=== PATIENT | male | born 1970 | race Caucasian/White ===

== ENCOUNTER 2016-10-28 08:40 | Emergency (ER) | payer OTHER ==
[2016-10-28 08:49] VITALS: BP 164/107; PULSE 107; TEMP 98.5; BMI 60.3
--- NOTE | 2016-10-28 09:51 | PDOC ---
History of Present Illness - General Chief Complaint: Edema Stated Complaint: SWOLLEN RT TOE Time Seen by Provider: 10/28/16 08:58 History Source: Patient Exam Limitations: No Limitations - History of Present Illness Initial Comments: 10/28/16 11:26 MY Chief Complaint: rt. large toe pain/redness, left lateral ankle swelling History of Present Illness: Patient is a 46-year-old male with a history of hypertension and [id number] diabetic that is currently not being treated here today complaining of right large toe pain times one week with redness of a 3 days. Patient also complaining of having swelling of his left lateral ankle however he denies any pain presently. Patient denies any history of gout or any injury to his right foot or left ankle. Denies any drinking patient does report eating meat and seafood. 10/28/16 13:25 Timing/Duration: getting worse (rt. large toe pain X 1 wk and redness for 3 days , left lateral ankle swelling X 1 wk ) Severity: moderate Associated Symptoms: reports: other (rt. large toe pain X 1 wk and redness for 3 days, left lateral ankle swelling X 1 wk ) Past History - Past Medical History Allergies/Adverse Reactions: Allergies Allergy/AdvReac Type Severity Reaction Status Date / Time Penicillins Allergy Verified 10/28/16 08:44 Home Medications: Ambulatory Orders Indomethacin [Indocin -] 25 mg PO TID #19 capsule 10/28/16 Diabetes: Yes (NON COMPLIANT WITH MEDS.) HTN: Yes (NON COMPLIANT WITH MEDS) - Family Disease History Family Disease History: Diabetes: Father - Immunization History Td Vaccination: No TDAP Vaccination: No Immunization Up to Date: Yes - Psycho/Social/Smoking Cessation Hx Anxiety: No Suicidal Ideation: No Smoking History: Never smoked Have you smoked in the past 12 months: No Hx Alcohol Use: No Drug/Substance Use Hx: No Substance Use Type: None Review of Systems - Review of Systems Able to Perform ROS?: Yes Constitutional: No: Symptoms Reported HEENTM: No: Symptoms Reported Respiratory: No: Symptoms reported Cardiac (ROS): No: Symptoms Reported ABD/GI: No: Symptoms Reported : No: Symptoms Reported Musculoskeletal: Yes: Joint Pain (right large toe X 1 wk ), Joint Swelling ( left lateral ankle X 1 wk ) Integumentary: Yes: Erythema (right large toe X 3 days) Neurological: No: Symptoms reported *Physical Exam - Vital Signs Last Vital Signs Temp Pulse Resp BP Pulse Ox 98.5 F 107 H 20 164/107 96 10/28/16 08:45 10/28/16 08:45 10/28/16 08:45 10/28/16 08:45 10/28/16 08:45 - Physical Exam General Appearance: Yes: Appropriately Dressed Respiratory/Chest: positive: Lungs Clear, Normal Breath Sounds. negative: Chest Tender, Respiratory Distress Cardiovascular: positive: Regular Rhythm, Regular Rate, S1, S2 Vascular Pulses: Dorsalis-Pedis (R): 4+ Extremity: positive: Normal Capillary Refill, Tender (right large toe ), Swelling (left lateral ankle). negative: Normal Inspection (rt. large toe edematous, erythematous ) Integumentary: positive: Erythema (right large toe) Neurologic: positive: Alert, Normal Response, Responsive. negative: Respond to painful stimul, Numbness, Sensory Deficit (right large toe) Procedures - Consent Consent obtained: From Patient - Splinting Splint Location: Left: Ankle Pre-Proc Neuro Vasc Exam: normal Post-Proc Neuro Vasc Exam: normal Jimy Bandage: 3" Complications: No ED Treatment Course - LABORATORY CBC & Chemistry Diagram: 10/28/16 09:52 10/28/16 09:52 - RADIOLOGY Radiology Studies Ordered: Category Date Time Status ANKLE & FOOT-LEFT* [RAD] Stat Radiology 10/28/16 09:49 Ordered FOOT-RIGHT [RAD] Stat Radiology 10/28/16 09:49 Ordered Medical Decision Making - Medical Decision Making Patient is a 46-year-old male with a history of hypertension and non-insulin- dependent diabetic pedis that is currently not being treated here today complaining of right large toe pain times one week with redness of a 3 days. Patient also complaining of having swelling of his left lateral ankle however he denies any pain presently. Patient denies any history of gout or any injury to his right foot or left ankle. Denies any drinking patient does report eating meat and seafood. R/O gout rt large toe R/O rafat injury rt large toe and left ankle GOUT ankle left sprain PLAN: cbc with diff ESR uric acid xray left ankle there is suggestion of old trauma with degenerative changes at the base of the first metatarsal. Most of the study is unremarkable. If symptoms persist further imaging may be of help per Dr. Kelly X-ray foot no acute pathology noted per Dr. Kelly 10/28/16 11:11 Laboratory Tests 10/28/16 09:52 WBC 9.7 RBC 5.22 Hgb 14.6 Hct 45.9 MCV 88.0 MCH 27.9 MCHC 31.7 L RDW 16.0 H Plt Count 217 MPV 8.8 Neutrophils % 63.3 Lymphocytes % 27.5 Monocytes % 6.3 Eosinophils % 2.3 Basophils % 0.6 10/28/16 11:37 Laboratory Tests 10/28/16 10/28/16 09:52 09:52 Sodium 138 Potassium 5.0 Chloride 103 Carbon Dioxide 31 Anion Gap 4 L BUN 21 H Creatinine 1.6 H Random Glucose 90 Uric Acid 9.2 H Calcium 9.3 10/28/16 11:42 10/28/16 11:50 10/28/16 11:56 jimy wrap left ankle 10/28/16 11:57 *DC/Admit/Observation/Transfer Diagnosis at time of Disposition: Sprain Gout Qualifiers: Gout site: toe Gout etiology: unspecified cause Chronicity: acute Laterality: right Qualified Code(s): M10.9 - Gout, unspecified - Discharge Dispostion Disposition: HOME Condition at time of disposition: Stable - Prescriptions Prescriptions: Indomethacin [Indocin -] 25 mg PO TID #19 capsule - Referrals Referrals: bAdias Gonzalez MD [Staff Physician] - - Patient Instructions Printed Discharge Instructions: DI for Gout Additional Instructions: You may obtain a primary care provider at [facility] at [phone] follow-up with within the next few days Follow-up with orthopedist if ankle swelling persist Elevate your left leg as much as possible and apply Jimy wrap to left ankle during the day take off at night Avoiding eating a lot of organ meat or seafood drink a lot of water Patient voiced understanding of discharge instructions and all questions were answered Print Language: PALAUAN
[2016-10-28 10:51] LABS: BASOPHIL 0.6 % (0-2.0); EOSINOPHIL 2.3 % (0-4.5); MCH 27.9 pg (25.7-33.7); MCHC 31.7 g/dl (32.0-35.9); MEAN PLT VOLUME 8.8 fl (7.5-11.1); NEUTROPHILS 63.3 % (42.8-82.8); PLATELET COUNT 217 K/MM3 (134-434); WHITE BLOOD COUNT 9.7 K/mm3 (4.0-10.0)
[2016-10-28 11:22] LABS: ANION GAP 4 (8-16); CALCIUM 9.3 mg/dL (8.5-10.1); CO2 31 mmol/L (21-32); CREATININE 1.6 mg/dL (0.7-1.3); GLUCOSE,RANDOM 90 mg/dL (74-106)
[2016-10-28] MEDS ORDERED: INDOMETHACIN 50 MG CAPSULE PO ONE (11:51)
== END 2016-10-28 12:11 | disposition home or self-care (01) ==
LOC: JERFT 08:40
DX: M10.9 Gout, unspecified (principal); S93.402A Sprain of unspecified ligament of left ankle, initial encounter; X58.XXXA Exposure to other specified factors, initial encounter; Y93.9 Activity, unspecified; Y92.9 Unspecified place or not applicable; I10 Essential (primary) hypertension; E11.9 Type 2 diabetes mellitus without complications
CPT/HCPCS: 36415; 73610-TC-LT; 73630-TC-LT; 73630-TC-RT; 80048; 84550; 85025; 85651; 99282-25

== ENCOUNTER 2017-01-05 11:50 | Emergency (ER) | payer OTHER ==
[2017-01-05 12:01] VITALS: BP 124/96; PULSE 95; TEMP 98.4; BMI 68.5
[2017-01-05] MEDS ORDERED: IBUPROFEN 600 MG TABLET (FP) PO ONE ×2 (13:05→13:09)
--- NOTE | 2017-01-05 13:09 | PDOC ---
History of Present Illness - General Chief Complaint: Pain, Acute Stated Complaint: LT LEG PAIN Time Seen by Provider: 01/05/17 12:08 History Source: Patient Exam Limitations: No Limitations - History of Present Illness Initial Comments: This is a 46-year-old male with past history of hypertension, hypercholesterolemia, diabetes, gout presents today with atraumatic left foot pain since awaking this morning. Patient denies any recent trauma. Patient seeks care today due to inability to bear weight on left foot. Patient states she was diagnosed with gout but his primary doctor took him off his indomethacin. She denies any fevers, chest pain, shortness of breath, pain to the left knee, left ankle. 01/05/17 13:11 Occurred: reports: this morning Severity: Yes: mild Lower Extremity Pain Location: left: foot (dorsum) Method of Injury: Yes: unknown Modifying Factors: improves with: None Lower Ext. Injury Location - Specific Injury Location Foot: left foot soft tissue tenderness, left foot limited range of motion, left foot swelling Past History - Travel Traveled outside of the country in the last 30 days: No Close contact w/someone who was outside of country & ill: No - Past Medical History Allergies/Adverse Reactions: Allergies Allergy/AdvReac Type Severity Reaction Status Date / Time Penicillins Allergy Verified 01/05/17 11:55 Home Medications: Ambulatory Orders Aspirin [ASA -] 81 mg PO DAILY 01/05/17 Cholecalciferol (Vitamin D3) [Vitamin D -] 400 unit PO ASDIR 01/05/17 Ezetimibe 10 mg PO ASDIR 01/05/17 Indomethacin [Indocin -] 50 mg PO TID #21 capsule 01/05/17 Metoprolol Succinate [Toprol Xl] 50 mg PO ASDIR 01/05/17 Anemia: Yes Diabetes: Yes (NON COMPLIANT WITH MEDS.) HTN: Yes (NON COMPLIANT WITH MEDS) Hypercholesterolemia: Yes - Family Disease History Family Disease History: Diabetes: Father - Immunization History Td Vaccination: No TDAP Vaccination: No Immunization Up to Date: Yes - Suicide/Smoking/Psychosocial Hx Smoking History: Never smoked Have you smoked in the past 12 months: No Information on smoking cessation initiated: No Hx Alcohol Use: No Drug/Substance Use Hx: No Substance Use Type: None Review of Systems - Review of Systems Able to Perform ROS?: Yes Is the patient limited Romanian proficient: No Constitutional: No: Symptoms Reported HEENTM: No: Symptoms Reported Respiratory: No: Symptoms reported Cardiac (ROS): No: Symptoms Reported ABD/GI: No: Symptoms Reported : No: Symptoms Reported Musculoskeletal: Yes: See HPI Integumentary: No: Symptoms Reported Neurological: No: Symptoms reported Endocrine: No: Symptoms Reported Hematologic/Lymphatic: No: Symptoms Reported *Physical Exam - Vital Signs Last Vital Signs Temp Pulse Resp BP Pulse Ox 98.4 F 95 H 16 124/96 100 01/05/17 11:57 01/05/17 11:57 01/05/17 11:57 01/05/17 11:57 01/05/17 11:57 - Physical Exam General Appearance: Yes: Appropriately Dressed. No: Apparent Distress HEENT: positive: EOMI, CASEY, Normal ENT Inspection Neck: positive: Trachea midline, Supple Respiratory/Chest: positive: Lungs Clear, Normal Breath Sounds. negative: Chest Tender, Respiratory Distress, Accessory Muscle Use Cardiovascular: positive: Regular Rhythm, Regular Rate, S1, S2. negative: Edema , Murmur Gastrointestinal/Abdominal: positive: Normal Bowel Sounds, Soft, Other (obese abdomen). negative: Tender Musculoskeletal: positive: Normal Inspection. negative: CVA Tenderness Extremity: positive: Tender (over left great toe MTP), Swelling (dorsum of left foot) Integumentary: positive: Normal Color, Dry, Warm Neurologic: positive: gm mobile II-XII NML intact, Fully Oriented, Alert, Motor Strength 5/5 Medical Decision Making - Medical Decision Making 01/05/17 13:14 A: This is a 46-year-old male with past history of hypertension, hypercholesterolemia, diabetes, gout presents today with atraumatic left foot pain since awaking this morning. Patient denies any recent trauma. Patient seeks care today due to inability to bear weight on left foot. Patient states she was diagnosed with gout but his primary doctor took him off his indomethacin. She denies any fevers, chest pain, shortness of breath, pain to the left knee, left ankle. Patient has point tenderness over left great toe MTP. Patient also with soft tissue tenderness over dorsum of left foot starting at the ankle and extending to the MTP. Patient able to range against resistance briefly. Patient reports decreased range of motion secondary to pain. Able to fully range of motion passively. No deformity or crepitus palpated. DDx: stress fracture vs gout vs tendonitis P: Given the nature of an atraumatic injury and patient's BMI, I will do an x-ray to rule out stress fracture. Also with history of gout and elevated uric acid levels on last visit, I will redraw uric acid levels and restart on indomethacin if it remains elevated. 01/05/17 14:24 Wet read of xrays by me: No acute fracture noted. Bony structures intact. Given elevated uric acid levels, mostly acute gouty arthritis. I will prescribe Indocin, provide low purine diet recommendations and podiatry consult as patient is a diabetic. I discussed the physical exam findings, ancillary test results and final diagnoses with the patient. I answered all of the patient's questions. The patient was satisfied with the care received and felt comfortable with the discharge plan and treatment plan. The patient will call his pmd within 96 hours to arrange follow-up and will return to the Emergency Department with any new, persistent or worsening symptoms. *DC/Admit/Observation/Transfer Diagnosis at time of Disposition: Acute gout due to renal impairment involving left foot - Discharge Dispostion Disposition: HOME Condition at time of disposition: Stable Admit: No - Prescriptions Prescriptions: Indomethacin [Indocin -] 50 mg PO TID #21 capsule - Referrals Referrals: Ben Mena [Primary Care Provider] - Steffen Canchola MD [Staff Physician] - - Patient Instructions Printed Discharge Instructions: DI for Gout, Low-Purine Diet Additional Instructions: Your uric acid level is 9.6 Follow the low purine diet instructions I have provided. Take indomethacin 50mg 3 times every day until pain is tolerable. See Dr. Mena to follow up on your gout. Call Dr. Canchola (podiatry) for an appointment to have foot care done. Rest foot as much as possible. Return to ER for increased pain, fevers, inability to walk or any other concerns. Thank you for choosing us to provide your acute healthcare needs.
== END 2017-01-05 14:40 | disposition home or self-care (01) ==
LOC: JERFT 11:50
DX: N28.9 Disorder of kidney and ureter, unspecified (principal); M10.30 Gout due to renal impairment, unspecified site; I10 Essential (primary) hypertension; E78.00 Pure hypercholesterolemia, unspecified; E11.9 Type 2 diabetes mellitus without complications; D64.9 Anemia, unspecified; Z88.0 Allergy status to penicillin; Z79.82 Long term (current) use of aspirin; Z91.14 Patient's other noncompliance with medication regimen
CPT/HCPCS: 36415; 73630-TC-LT; 84550; 99281-25

== ENCOUNTER 2017-11-01 09:15 | Emergency (ER) | payer SELFPAY ==
[2017-11-01 09:30] VITALS: BP 160/100; PULSE 98; TEMP 98.4; BMI 51.6
--- NOTE | 2017-11-01 09:44 | PDOC ---
History of Present Illness - General Chief Complaint: Injury Stated Complaint: LEG PAIN Time Seen by Provider: 11/01/17 09:34 History Source: Patient Exam Limitations: No Limitations - History of Present Illness Initial Comments: 11/01/17 19:08 Patient sustained an inversion injury yesterday his left ankle. States used Ice And Tylenol with some minimal results Occurred: reports: yesterday Severity: reports: moderate Pain Location: reports: lower extremity (left swelling and pain to lateral ) Modifying Factors: improves with: cold therapy Loss of Consciousness: no loss of consciousness Associated Symptoms (Fall): denies symptoms Past History - Travel Traveled outside of the country in the last 30 days: No Close contact w/someone who was outside of country & ill: No - Past Medical History Allergies/Adverse Reactions: Allergies Allergy/AdvReac Type Severity Reaction Status Date / Time ramipril Allergy Severe Difficulty Verified 11/01/17 09:18 Breathing Penicillins Allergy Verified 11/01/17 09:16 Home Medications: Ambulatory Orders Metoprolol Succinate [Toprol Xl] 50 mg PO ASDIR 01/05/17 Acetaminophen 650 mg PO Q4H #60 tablet 11/01/17 Anemia: Yes COPD: No Diabetes: Yes (NON COMPLIANT WITH MEDS.) HTN: Yes (NON COMPLIANT WITH MEDS) Hypercholesterolemia: Yes - Family Disease History Family Disease History: Diabetes: Father - Immunization History Td Vaccination: No TDAP Vaccination: No Immunization Up to Date: Yes - Suicide/Smoking/Psychosocial Hx Smoking History: Never smoked Have you smoked in the past 12 months: No Hx Alcohol Use: No Drug/Substance Use Hx: No Substance Use Type: None Review of Systems - Review of Systems Able to Perform ROS?: Yes Is the patient limited Ukrainian proficient: Yes Constitutional: Yes: Symptoms Reported, See HPI HEENTM: No: Symptoms Reported Respiratory: No: Symptoms reported Musculoskeletal: Yes: Symptoms Reported, See HPI, Joint Pain, Joint Swelling, Muscle Pain Integumentary: Yes: Symptoms Reported, Bruising All Other Systems: Reviewed and Negative *Physical Exam - Vital Signs Last Vital Signs Temp Pulse Resp BP Pulse Ox 98.4 F 98 H 18 160/100 100 11/01/17 09:16 11/01/17 09:16 11/01/17 09:16 11/01/17 09:16 11/01/17 09:16 - Physical Exam General Appearance: Yes: Nourished, Appropriately Dressed, Apparent Distress, Mild Distress HEENT: positive: TMs Normal, Pharynx Normal Neck: positive: Supple. negative: Tender Respiratory/Chest: positive: Lungs Clear, Normal Breath Sounds Gastrointestinal/Abdominal: positive: Soft Extremity: positive: Normal Capillary Refill, Tender (point tenderness to lateral malleolus and fifth metatarsal. No crepitus or step-offs, ambulatory but walks with a limp.), Swelling. negative: Normal Range of Motion Integumentary: positive: Pale, Swelling, Ecchymosis Neurologic: positive: storage battery inspector and tester II-XII NML intact, Fully Oriented, Alert, Normal Mood/ Affect, Normal Response, Motor Strength 07/29 ED Treatment Course - RADIOLOGY Radiology Studies Ordered: Category Date Time Status ANKLE-LEFT [RAD] Stat Radiology 11/01/17 09:35 Ordered Progress Note - Progress Note Progress Note: X-ray negative for fractures or dislocations, Jimy and Aircast provided with crutches. Will follow-up with Froylan Castaneda *DC/Admit/Observation/Transfer Diagnosis at time of Disposition: Left ankle sprain Qualifiers: Encounter type: initial encounter Involved ligament of ankle: unspecified ligament Qualified Code(s): S93.402A - Sprain of unspecified ligament of left ankle, initial encounter - Discharge Dispostion Disposition: HOME Condition at time of disposition: Stable Decision to Admit order: No - Prescriptions Prescriptions: Acetaminophen 650 mg PO Q4H #60 tablet - Referrals Referrals: Ben Mena [Primary Care Provider] - Reuben Starr MD [Staff Physician] - - Patient Instructions Printed Discharge Instructions: DI for Ankle Sprain Additional Instructions: Rest, ice to area on and off for 15 minutes 4-6 times a day Avoid heavy lifting or exercise until pain and swelling is resolved or until further directed Keep area highly elevated to reduce swelling Use splints/Jimy wrap as directed Followup with orthopedist in one to 2 days if not improving, if significantly improved may wait one week for followup with orthopedist May use in all 23 25 mg tablets every 6 hours as needed for pain - Post Discharge Activity Forms/Work/School Notes: Back to Work
== END 2017-11-01 10:20 | disposition home or self-care (01) ==
LOC: JERFT 09:15
PROC: 2W3RX1Z Immobilization of Left Lower Leg using Splint (ICD-10-PCS; principal; 2017-11-01)
DX: S93.402A Sprain of unspecified ligament of left ankle, initial encounter (principal); D64.9 Anemia, unspecified; I10 Essential (primary) hypertension; E11.9 Type 2 diabetes mellitus without complications; E78.00 Pure hypercholesterolemia, unspecified; Z88.0 Allergy status to penicillin; Z91.14 Patient's other noncompliance with medication regimen; X58.XXXA Exposure to other specified factors, initial encounter; Y93.9 Activity, unspecified; Y92.9 Unspecified place or not applicable
CPT/HCPCS: 73610-TC-LT-FY; 99282-25

== ENCOUNTER 2024-02-10 19:34 | Observation (INO) | payer OTHER ==
[2024-02-10] MEDS ORDERED: ACETAMINOPHEN 325 MG TABLET (FP) ONE (20:45)
[2024-02-10] MEDS: ACETAMINOPHEN 500 MG TABLET (FP) PO ONE (20:49)
[2024-02-10 23:47] LABS: BASO % 0.8 % (0-2.0); HEMOGLOBIN 14.8 GM/dL (11.7-16.9); LYMPH % 31.2 % (8-40); MCH 30.5 pg (25.7-33.7); MCHC 33.6 g/dl (32.0-35.9); MEAN CELL VOLUME 90.8 fl (80-96); MEAN PLT VOLUME 8.1 fl (7.5-11.1); MONO % 6.1 % (3.8-10.2); NEUT % 58.9 % (42.8-82.8); PLATELET COUNT 177 10^3/uL (134-434); RBC 4.85 M/mm3 (4.00-5.60); RDW 14.7 % (11.9-15.9); WHITE BLOOD COUNT 7.1 K/mm3 (4.0-10.0)
[2024-02-10 23:59] LABS: ALBUMIN 3.3 g/dl (3.4-5.0); BLOOD UREA NITROGEN 15.6 mg/dL (7-18); CALCIUM 8.8 mg/dL (8.5-10.1)
[2024-02-11 00:03] LABS: CREATININE 1.5 mg/dL (0.55-1.3)
[2024-02-11 00:04] LABS: BILIRUBIN,TOTAL 0.3 mg/dL (0.2-1); TOT PROT 6.4 g/dl (6.4-8.2)
[2024-02-11] MEDS: ACETAMINOPHEN 500 MG TABLET (FP) PO ONE (04:41)
[2024-02-11] MEDS: ONDANSETRON 4 MG/2 ML VIAL IVPUSH ONE (04:41)
[2024-02-11 08:47] VITALS: BMI 47.6
[2024-02-11] MEDS: INSULIN ASPART SLIDING SCALE (NOVOLOG) 1 VIAL SQ SCH (09:02)
[2024-02-11 09:21] LABS: BASO % 0.6 % (0-2.0); EOS % 2.8 % (0-4.5); HEMATOCRIT 44.8 % (35.4-49); HEMOGLOBIN 14.8 GM/dL (11.7-16.9); LYMPH % 32.2 % (8-40); MCH 30.5 pg (25.7-33.7); MEAN CELL VOLUME 92.3 fl (80-96); MEAN PLT VOLUME 8.5 fl (7.5-11.1); MONO % 6.1 % (3.8-10.2); NEUT % 58.3 % (42.8-82.8); PLATELET COUNT 184 10^3/uL (134-434); RBC 4.85 M/mm3 (4.00-5.60); RDW 15.1 % (11.9-15.9); WHITE BLOOD COUNT 6.5 K/mm3 (4.0-10.0)
[2024-02-11] MEDS: EZETIMIBE 10 MG TABLET (FP) PO SCH (09:21)
[2024-02-11] MEDS: amLODIPine BESYLATE 10 MG TABLET (FP) PO SCH (09:21)
[2024-02-11] MEDS: ACETAMINOPHEN 325 MG TABLET (FP) PO PRN (09:23)
[2024-02-11 09:56] LABS: CHOLESTEROL 205 mg/dL (50-200)
[2024-02-11 09:57] LABS: LDL CHOLESTEROL (ONLY SJRH) 148 mg/dL (5-100)
[2024-02-11 09:58] LABS: HDL CHOLESTEROL 38 mg/dL (40-60)
[2024-02-11 10:13] LABS: POTASSIUM 4.8 mmol/L (3.5-5.1)
[2024-02-11 10:14] LABS: CALCIUM 9.1 mg/dL (8.5-10.1)
[2024-02-11 10:15] LABS: BLOOD UREA NITROGEN 17.5 mg/dL (7-18)
[2024-02-11 10:18] LABS: CREATININE 1.7 mg/dL (0.55-1.3)
[2024-02-11] MEDS: OXcarbazepine 300 MG TABLET (UD) PO SCH (11:02)
[2024-02-11 13:18] LABS: EPI CELLS 15 /uL (0-25.1); HYALINE CASTS 1 /uL (0-3.1); PH,URINE 6.5 (5.0-8.0); URINE APPEARANCE CLEAR; URINE BACTERIA 94 /uL (0-1359); URINE BILIRUBIN NEGATIVE (NEGATIVE); URINE COLOR YELLOW; URINE GLUCOSE (UA) NEGATIVE (NEGATIVE); URINE KETONE NEGATIVE (NEGATIVE); URINE LEUK ESTERASE NEGATIVE (NEGATIVE); URINE NITRITE NEGATIVE (NEGATIVE); URINE PROTEIN 2+ (NEGATIVE); URINE RBC 16 /uL (0-23.9); URINE WBC 17 /uL (0-25.8)
[2024-02-11] MEDS: KETOROLAC TROMETHAMINE 15 MG/ML VIAL IVPUSH ONE (13:35)
[2024-02-11] MEDS: OXcarbazepine 300 MG/5 ML 250 ML BULK BOTTLE PO SCH (17:10)
[2024-02-12 12:19] LABS: POTASSIUM 4.7 mmol/L (3.5-5.1)
[2024-02-12 12:25] LABS: CALCIUM 9.1 mg/dL (8.5-10.1)
[2024-02-12 12:27] LABS: ALBUMIN 3.4 g/dl (3.4-5.0); BLOOD UREA NITROGEN 19.2 mg/dL (7-18)
[2024-02-12 12:30] LABS: CREATININE 1.7 mg/dL (0.55-1.3)
[2024-02-12 12:32] LABS: BILIRUBIN,TOTAL 0.3 mg/dL (0.2-1); TOT PROT 6.6 g/dl (6.4-8.2)
[2024-02-12] MEDS: OXcarbazepine 300 MG/5 ML UNIT DOSE CUPS PO SCH (14:44)
[2024-02-13 10:31] LABS: BASO % 0.6 % (0-2.0); EOS % 3.6 % (0-4.5); HEMATOCRIT 45.6 % (35.4-49); HEMOGLOBIN 15.1 GM/dL (11.7-16.9); MCH 29.8 pg (25.7-33.7); MCHC 33.1 g/dl (32.0-35.9); MEAN CELL VOLUME 90.2 fl (80-96); MEAN PLT VOLUME 8.2 fl (7.5-11.1); MONO % 7.4 % (3.8-10.2); NEUT % 57.4 % (42.8-82.8); PLATELET COUNT 187 10^3/uL (134-434); RBC 5.05 M/mm3 (4.00-5.60); RDW 14.7 % (11.9-15.9); WHITE BLOOD COUNT 6.9 K/mm3 (4.0-10.0)
[2024-02-13 10:46] LABS: POTASSIUM 4.2 mmol/L (3.5-5.1)
[2024-02-13 10:55] LABS: CALCIUM 8.8 mg/dL (8.5-10.1)
[2024-02-13 10:56] LABS: ALBUMIN 3.4 g/dl (3.4-5.0); BLOOD UREA NITROGEN 18.8 mg/dL (7-18)
[2024-02-13 10:59] LABS: BILIRUBIN,TOTAL 0.3 mg/dL (0.2-1); CREATININE 1.6 mg/dL (0.55-1.3); TOT PROT 6.6 g/dl (6.4-8.2)
[2024-02-13] MEDS: KETOROLAC TROMETHAMINE 15 MG/ML VIAL IVPUSH PRN (16:31)
[2024-02-13] MEDS: hydrALAZINE HCL 10 MG TABLET PO SCH (21:19)
[2024-02-14 10:03] LABS: BASO % 0.5 % (0-2.0); HEMATOCRIT 45.6 % (35.4-49); HEMOGLOBIN 14.6 GM/dL (11.7-16.9); LYMPH % 31.2 % (8-40); MCH 29.4 pg (25.7-33.7); MEAN CELL VOLUME 91.9 fl (80-96); MEAN PLT VOLUME 8.5 fl (7.5-11.1); MONO % 6.7 % (3.8-10.2); NEUT % 57.6 % (42.8-82.8); PLATELET COUNT 181 10^3/uL (134-434); RBC 4.96 M/mm3 (4.00-5.60); RDW 14.6 % (11.9-15.9); WHITE BLOOD COUNT 6.7 K/mm3 (4.0-10.0)
[2024-02-14 10:19] LABS: POTASSIUM 4.4 mmol/L (3.5-5.1)
[2024-02-14 10:32] LABS: ALBUMIN 3.2 g/dl (3.4-5.0); BLOOD UREA NITROGEN 25.4 mg/dL (7-18)
[2024-02-14 10:35] LABS: CREATININE 1.7 mg/dL (0.55-1.3)
[2024-02-14 10:36] LABS: BILIRUBIN,TOTAL 0.3 mg/dL (0.2-1); TOT PROT 6.3 g/dl (6.4-8.2)
[2024-02-14 12:14] VITALS: BP 151/97; PULSE 79; RESP 18; TEMP 99.1
== END 2024-02-14 12:18 | disposition short-term general hospital (02) ==
LOC: JER 19:34 → JERBED 02-11 00:16 → J6S 02-11 07:05
PROVIDERS: ADMIT Internal Medicine; ATTEND Internal Medicine
PROC: 3E0333Z Introduction of Anti-inflammatory into Peripheral Vein, Percutaneous Approach (ICD-10-PCS; principal; 2024-02-11)
PROC: 3E033GC Introduction of Other Therapeutic Substance into Peripheral Vein, Percutaneous Approach (ICD-10-PCS; 2024-02-11)
DX: I65.1 Occlusion and stenosis of basilar artery (principal); E11.9 Type 2 diabetes mellitus without complications; I10 Essential (primary) hypertension; E78.5 Hyperlipidemia, unspecified; N17.9 Acute kidney failure, unspecified; R68.84 Jaw pain; R51.9 Headache, unspecified; R56.9 Unspecified convulsions; M10.9 Gout, unspecified; E66.9 Obesity, unspecified; E66.01 Morbid (severe) obesity due to excess calories; Z88.2 Allergy status to sulfonamides; Z88.8 Allergy status to other drugs, medicaments and biological substances
CPT/HCPCS: 36415; 70450-TC; 70486-TC; 70544-TC; 70551-TC; 76775-TC; 80048; 80053; 80061; 80183; 81003; 82010; 82962; 83036; 84439; 84443; 84484; 85025; 87635; 93005; 93010; 93306-TC; 96374; 96375; 96376; 99285-25; G0378